=== PATIENT | female | born 1960 ===

== ENCOUNTER 2023-10-06 08:22 | Day surgery (SDC) | payer MEDICARE, OTHER ==
[2023-10-06] VITALS (16 sets, daily range): BP systolic 123–172; BP diastolic 61–98
[~2023-10-06] VITALS: Ht 165.1 cm; Wt 102.3 kg
[~2023-10-06 08:22] MED LIST: ALBU90OI INH; Lactated Ringer's 1,000 ML IV SCH; TRELEGY ELLIPT1 EACH INH; propofoL 40 ML IV ONE
--- NOTE | 2023-10-06 09:14 | NUR ---
PATIENT REPORTS TAKING ALL OF COLON PREP MINUS APPROX 1/2-3/4 CUPS WITH CLEAR LIGHT YELLOW RESULTS.
[2023-10-06] MEDS ORDERED: NAPR220 PO (09:18)
[2023-10-06] MEDS ORDERED: Acetaminophen500 MG PO (09:19)
--- NOTE | 2023-10-06 09:38 | NUR ---
History, Chart, Medications and Allergies reviewed before start of procedure. Patient confirms NPO status and agrees with scheduled surgery.
--- NOTE | 2023-10-06 10:20 | NUR ---
10/06/23 1020 [address] HISTORY, CHART, MEDICATIONS AND ALLERGIES REVIEWED BEFORE START OF PROCEDURE. PATIENT CONFIRMS NPO STATUS AND AGREES WITH SCHEDULED PROCEDURE. 3-LEAD EKG REVIEWED WITH PHYSICIAN PRIOR TO START OF PROCEDURE. MONITOR INTACT WITH CONTINUOUS PULSE OXIMETRY,CAPNOGRAPHY, 3-LEAD EKG, INTERMITTENT BP. SUPPLEMENTAL O2 TO BE TITRATED THROUGHOUT PROCEDURE TO MAINTAIN O2 SATURATION ABOVE 90%. PATIENT DETERMINED TO BE ASA APPROPRIATE FOR PROPOFOL SEDATION PRIOR TO START OF PROCEDURE BY DR. GIBSON
--- NOTE | 2023-10-06 10:51 | NUR ---
Discharge instructions reviewed with patient. Patient verbalizes understanding. Copy given to patient to take home. Discharged via wheelchair to private car for ride home.
== END 2023-10-06 10:52 | disposition home or self-care (01) ==
LOC: ORSCMMR 08:22 → ORD 09:30 → ORSCMMR 10:52
PROVIDERS: Internal Medicine Gastroenterology
PROC: 0DBP8ZX Excision of Rectum, Via Natural or Artificial Opening Endoscopic, Diagnostic (ICD-10-PCS; principal; 2023-10-06 09:30)
PROC: 0DBM8ZX Excision of Descending Colon, Via Natural or Artificial Opening Endoscopic, Diagnostic (ICD-10-PCS; principal; 2023-10-06 09:30)
DX: Z12.11 Encounter for screening for malignant neoplasm of colon (principal); K63.5 Polyp of colon; K62.1 Rectal polyp; K57.30 Diverticulosis of large intestine without perforation or abscess without bleeding; J44.9 Chronic obstructive pulmonary disease, unspecified; Z79.899 Other long term (current) drug therapy; F17.210 Nicotine dependence, cigarettes, uncomplicated
CPT/HCPCS: 88305; J2704; J7120